=== PATIENT | male | born 1955 | race Caucasian/White ===

== ENCOUNTER → 2017-11-28 | Outpatient (CLI) | payer OTHER ==
[~2017-11-28] VITALS: Ht 177.8 cm; Wt 95.3 kg
[~2017-11-28] MED LIST: TOPROL XL25 MG
[2017-11-28 14:11] LABS: ABSOLUTE EOSINOPHILS 0.1 thou/uL (0.0-0.7); ABSOLUTE LYMPHOCYTES 1.5 thou/uL (0.8-5.3); ABSOLUTE MONOCYTES 0.4 thou/uL (0.0-1.2); BASOPHILS 0.6 %; EOSINOPHILS 2.3 %; HEMATOCRIT 48.3 % (42.0-52.0); HEMOGLOBIN 16.3 gm/dL (14.0-18.0); LYMPHOCYTES 37.5 %; MCH 30.8 pg (26.0-34.0); MCHC 33.7 g/dL (28.0-37.0); MCV 91.4 fL (80.0-100.0); MONOCYTES 9.8 %; MPV 8.6 fl. (7.2-11.1); NUCLEATED RBCS 0 /100WBC; PLATELET COUNT* 217 thou/uL (150-400); POLYS 49.8 %; RBC 5.29 mil/uL (4.50-6.00); RDW-CV 13.8 % (10.5-14.5); WBC 4.1 thou/uL (4.0-11.0)
[2017-11-28 14:14] VITALS: BP 128/78
[2017-11-28 14:22] LABS: APTT 28.9 Seconds (25.0-31.3); INR 1.1; PROTIME 10.4 Seconds (9.20-11.50)
[2017-11-28 14:24] LABS: CALCIUM 9.3 mg/dL (8.5-10.1); CREATININE 0.8 mg/dL (0.6-1.3); POTASSIUM 3.8 mmol/L (3.5-5.1)
[2017-11-28 14:29] LABS: ALBUMIN 4.3 g/dL (3.4-5.0); TOTAL BILIRUBIN 0.9 mg/dL (<0.1-1.0); TOTAL PROTEIN 7.6 g/dL (6.4-8.2)
[2017-11-28 16:10] VITALS: BP 151/76
[2017-11-28 16:26] VITALS: BP 126/70
[2017-11-28 16:42] VITALS: BP 120/68
[2017-11-28 16:44] VITALS: BP 118/67
--- NOTE | 2017-12-06 14:01 | CARD ---
[place] [address] CARDIAC CATH REPORT Name: HORACIO ABDALLA [id number] Admission: 11/28/17 Attend Phys: Antony Saleh MD Discharge: Date of : 53 Report #: [id number] THIS REPORT FOR: //name// APPROVED REPORT Patient Status: OP Room #: Event Personnel: Antony Salhe Braided Rug Maker, Luly Antonio Oral Surgery Technician, Vanita Dean, Mir Seymour (Rock) Scrub Exam: ICD generator change Indications: ICD generator at elective replacement The patient is a 62 year-old male with a history of . Intraoperative Conscious Sedation Sedation start time: 15:18 Case end Time: 15:40 Fentanyl 100 mcg Implanted Devices: Biotronik Itrevia 7 LOWELL DF 1, model #174740, serial #[id number] Explanted Devices: Medtronic Virtuoso II , model #0274 DRG, serial number [id number] Procedure After explaining the risks, benefits, and alternative options, informed consent was obtained from the patient. The patient was brought to the cardiac catheterization lab and the left chest and shoulder were prepped and draped in the usual fashion. Local anesthesia was achieved with 1% lidocaine. After an initial incision was made over the existing pulse generator the generator was explanted using electrocautery and blunt dissection. The generator was detached from the atrial and right ventricular pacing leads. Leads were checked and threshold being really satisfactory. At this point the pocket was flushed with antibiotic solution. A new dual-chamber pacing ICD generator was attached to the atrial and pacing RV leads. The redundant lead and generator were placed within the device pocket. The deep tissues were closed using interrupted stitches of 2-0 Vicryl. The skin incision was then closed with a single subcuticular stitch of 4-0 Vicryl. Several Steri-Strips were placed across the incision and a sterile Telfa pad dressing covered [place] [address] CARDIAC CATH REPORT Name: HORACIO ABDALLA Room: [facility]#: [id number] Admission: 11/28/17 Attend Phys: Antony Saleh MD Discharge: Date of : 53 Report #: [id number] Complications The patient tolerated the procedure well and there were no complications associated with the procedure. Findings The sensed R-wave was 6.0 mV. The sensed P wave was 4.70 mV. The right ventricular pacing impedance was 1 0.50 ms. The right atrial pacing impedance was 0.5 V at 0.40 ms. Right ventricular pacing impedance was 320 ohms. Right atrial pacing impedance was 450 ohms. Shocking impedance was 68 ohms. The charge time was 9.5 seconds. VT detection rate someone was 154 bpm. VT detection rate 17 was 176 bpm. VF detection rate was 222 beats per minute. VF therapies were anicteric tachycardia pacing times one followed by 40 J shocks 8. VT 1 therapies were for monitoring. VT 2 therapies were for burst pacing 6 followed by ramp pacing 6 followed by 40 J shocks 8. Conclusion 1. ICD generator at elective replacement. 2. Replacement of ICD generator with a new dual-chamber pacing ICD generator. Recommendations 1. Follow-up in the clinic for site check in one week. <ELECTRONICALLY SIGNED> By: Antony Saleh MD, FACC 12/06/17 1401 1401 1401Micsyl Saleh MD, FACC /INF
--- NOTE | 2017-12-07 09:11 | H ---
[place] [address] HISTORY AND PHYSICAL Name: HORACIO ABDALLA Room: [facility]#: [id number] Admission: 11/28/17 Attend Phys: Antony Saleh MD Discharge: Date of : 53 Report #: [id number] THIS REPORT FOR: //name// CC: Antony Sinclair MD INDICATION: Elective replacement of ICD generator. HISTORY OF PRESENT ILLNESS: The patient is a pleasant 62-year-old gentleman with a history of a ventricular tachycardia, status post ICD placement for secondary prevention in 2003. His ICD generator has reached elective replacement. He also has a history of paroxysmal atrial fibrillation. He had no recent recurrence. PAST MEDICAL HISTORY: 1. Ventricular tachycardia. 2. Status post ICD placement. 3. Hyperthyroidism. 4. Hyperlipidemia. 5. Dilated aortic root. 6. Aortic insufficiency. 7. Paroxysmal atrial fibrillation. PAST SURGICAL HISTORY: 1. Cardiac defibrillator placed in 2003. 2. Knee arthroscopy. 3. Rotator cuff repair. FAMILY HISTORY: Noncontributory. SOCIAL HISTORY: The patient does not smoke or drink alcohol. ALLERGIES: . PHYSICAL EXAMINATION: VITAL SIGNS: Blood pressure 130/70, pulse rate 63 and regular. GENERAL: This is a pleasant gentleman, in no distress. Mood and affect appropriate. HEENT: Pupils are equally around and react to light. Extraocular muscles are intact. Mucous membranes are moist. NECK: Shows no jugular venous distention. There are no carotid bruits. CHEST: Reveals clear lung tobias without wheezes or rales. CARDIAC: Reveals a regular rhythm without gallop or murmur. ABDOMEN: Reveals normal bowel sounds. The abdomen is soft and nontender. EXTREMITIES: [place] [address] HISTORY AND PHYSICAL Name: HORACIO ABDALLA Room: [facility]#: [id number] Admission: 11/28/17 Attend Phys: Antony Saleh MD Discharge: Date of : 53 Report #: [id number] IMPRESSION: 1. ICD generator at elective replacement. 2. History of ventricular tachycardia. 3. Status post ICD placement for secondary prevention. 4. Paroxysmal atrial fibrillation. 5. Dilated aortic root. 6. insufficiency. PLAN: ICD generator replacement. <ELECTRONICALLY SIGNED> By: Antony Saleh MD, FACC 12/07/17 0911 1404 1422Michael Bryant Saleh MD, FACC /nt
== END | disposition home or self-care (01) ==
LOC: M.CL 10:30
PROVIDERS: Internal Medicine Cardiovascular Disease
DX: Z45.018 Encounter for adjustment and management of other part of cardiac pacemaker (principal); E78.5 Hyperlipidemia, unspecified; E03.9 Hypothyroidism, unspecified; I48.0 Paroxysmal atrial fibrillation; Z95.810 Presence of automatic (implantable) cardiac defibrillator; Z98.890 Other specified postprocedural states; Z87.891 Personal history of nicotine dependence; Z79.899 Other long term (current) drug therapy